=== PATIENT | male | born 1955 | race Caucasian/White ===

== ENCOUNTER 2016-12-16 21:15 | Emergency (ER) | payer BC ==
[~2016-12-16] VITALS: Ht 188 cm; Wt 131.8 kg
[2016-12-16 22:50] VITALS: BP 130/76; PULSE 60; TEMP 98.8
== END 2016-12-16 22:50 | disposition home or self-care (01) ==
LOC: COL.ER 21:15
DX: N32.89 Other specified disorders of bladder (principal); Z46.6 Encounter for fitting and adjustment of urinary device; Z98.890 Other specified postprocedural states

== ENCOUNTER 2016-12-18 11:08 | Emergency (ER) | payer BC ==
[~2016-12-18] VITALS: Ht 188 cm; Wt 131.8 kg
[2016-12-18 11:15] VITALS: TEMP 97.1
[2016-12-18] MEDS ORDERED: TOPROL XL100 MG PO (11:20)
[2016-12-18] MEDS ORDERED: MAGNESIUM200 MG PO (11:21)
[2016-12-18] MEDS ORDERED: PRINIVIL10 MG PO (11:21)
[2016-12-18] MEDS ORDERED: SENOKOT S 50 MG1 TAB PO (11:21)
[2016-12-18] MEDS ORDERED: MULTI VITAMINS1 TAB PO (11:21)
[2016-12-18] MEDS ORDERED: NULEV0.125 M1 PO (11:22)
[2016-12-18] MEDS ORDERED: PERCOCET 325 MG1 TA2 PO (11:23)
[2016-12-18] MEDS ORDERED: CIPRO 500MG TA500 MG PO (11:23)
[2016-12-18] MEDS ORDERED: MIRALAX PA17 GM/Dose PO (11:23)
[2016-12-18 13:59] VITALS: BP 136/75; PULSE 62
== END 2016-12-18 13:59 | disposition home or self-care (01) ==
LOC: COL.ER 11:08
DX: T83.098A Other mechanical complication of other urinary catheter, initial encounter (principal); Z98.890 Other specified postprocedural states; Z90.79 Acquired absence of other genital organ(s); I10 Essential (primary) hypertension